=== PATIENT | male | born 1970 | race Two or more races ===

== ENCOUNTER 2022-03-09 17:04 | Emergency (ER) | payer OTHER ==
[~2022-03-09] VITALS: Ht 190.5 cm; Wt 164.7 kg
[~2022-03-09 17:04] MED LIST: AMBIEN5 MG; CEFADROXIL500 MG; GANI-TUSS-DM N473 ML; KLONOPIN0.125 MG/T
[2022-03-09] MEDS ORDERED: RISPERDAL1 MG (18:36)
[2022-03-09] MEDS ORDERED: LEXAPRO5 MG (18:36)
[2022-03-09] MEDS ORDERED: RISPERDAL2 MG (18:37)
[2022-03-09] MEDS ORDERED: TYLENOL ARTHRI650 MG PO (22:29)
== END 2022-03-09 22:48 | disposition home or self-care (01) ==
LOC: ER 17:04
DX: S83.8X2A Sprain of other specified parts of left knee, initial encounter (principal); X58.XXXA Exposure to other specified factors, initial encounter; Y93.89 Activity, other specified; Y92.89 Other specified places as the place of occurrence of the external cause; M25.562 Pain in left knee